=== PATIENT | female | born 1970 | race Caucasian/White ===

== ENCOUNTER → 2016-07-26 | Outpatient (REF) | payer OTHER | LOC: M LAB REF 15:55 | PROVIDERS: ATTEND Physician Assistant Medical | DX: N30.01 Acute cystitis with hematuria (principal) ==

== ENCOUNTER → 2016-08-01 | Outpatient (REF) | payer BC, OTHER | LOC: M LAB REF 12:42 | PROVIDERS: ATTEND Physician Assistant | DX: N30.01 Acute cystitis with hematuria (principal) ==

== ENCOUNTER → 2016-09-28 | Outpatient (CLI) | payer BC ==
[2016-09-28 19:13] LABS: INR 2.41
== END ==
LOC: M ADAMS 15:23
PROVIDERS: ATTEND Physician Assistant Medical
DX: I34.0 Nonrheumatic mitral (valve) insufficiency (principal)

== ENCOUNTER → 2016-10-03 | Outpatient (REF) | payer BC | LOC: M LAB REF 18:49 | PROVIDERS: ATTEND Physician Assistant | DX: N39.0 Urinary tract infection, site not specified (principal) ==

== ENCOUNTER → 2016-11-03 | Outpatient (CLI) | payer BC ==
--- NOTE | 2016-11-04 01:31 | REP ---
Clinical: Pain. Technique: AP, lateral, bilateral oblique coned-down views of the lumbosacral spine. Findings: Chronic-appearing scoliosis and moderate to early advanced degenerative changes include osteophytosis, endplate sclerosis/irregularity and disc space narrowing. No acute fracture / compression injury or subluxation. Impression: Chronic scoliosis and moderate multilevel degenerative disc osteophyte complexes. Signed by Miko Culp MD 11/04/2016 01:23 A
== END ==
LOC: M WUC 14:33
PROVIDERS: ATTEND Nurse Practitioner Family
DX: M41.9 Scoliosis, unspecified (principal); M51.37 Other intervertebral disc degeneration, lumbosacral region

== ENCOUNTER → 2017-02-02 | Outpatient (REF) | payer BC | LOC: M SFHCWAGY 14:11 | PROVIDERS: ATTEND Nurse Practitioner Women's Health | DX: Z12.4 Encounter for screening for malignant neoplasm of cervix (principal) ==

== ENCOUNTER → 2017-02-02 | Outpatient (CLI) | payer BC ==
--- NOTE | 2017-02-02 15:59 | REPMRS ---
Patient History The patient states she had a clinical breast exam in 01/29 Patient is nulliparous. Family history of colorectal cancer in father at age 50. Cyst aspiration of the left breast, 1997. Took hormonal contraceptives for 6 years. Digital Woman Screen Mammo: February 02, 2017 - Exam #: [id number] Bilateral CC and MLO view(s) were taken. Technologist: Rosa Rodriguez, Technologist Prior study comparison: August 07, 2014, digital woman screen mammo performed at [facility]. May 13, 2013, digital woman screen mammo performed at [facility]. FINDINGS: There are scattered fibroglandular densities. There has been no change in the appearance of the mammogram from the prior studies. There is a mild amount of residual fibroglandular tissue which is fairly symmetric. There is no interval development of dominant mass, architectural distortion, or clustered microcalcification suggestive of malignancy. ASSESSMENT: BI-RADS/ACR category 1 mammogram. Negative. Recommendation Routine screening mammogram in 1 year (for women over age 40). This mammogram was interpreted with the aid of an FDA-approved computer-aided dectection system. Electronically Signed By: Shelton Duke MD 02/02/17 [id number]
== END ==
LOC: M WHC 13:36
PROVIDERS: ATTEND Nurse Practitioner Women's Health
DX: Z12.31 Encounter for screening mammogram for malignant neoplasm of breast (principal)

== ENCOUNTER → 2017-06-16 | Outpatient (REF) | payer BC ==
[2017-06-16 12:59] LABS: INR 2.42; PROTHROMBIN TIME 27.3 SECONDS (12.4-14.5)
== END ==
LOC: M LAB REF 12:32
DX: Z95.2 Presence of prosthetic heart valve (principal)
CPT/HCPCS: 85610

== ENCOUNTER → 2017-12-18 | Outpatient (CLI) | payer BC ==
[2017-12-18 20:06] LABS: INR 3.92; PROTHROMBIN TIME 39.3 SECONDS (12.1-14.4)
== END ==
LOC: M ADAMS 11:19
DX: Z51.81 Encounter for therapeutic drug level monitoring (principal); Z79.01 Long term (current) use of anticoagulants; Z95.2 Presence of prosthetic heart valve
CPT/HCPCS: 85610

== ENCOUNTER → 2018-03-29 | Outpatient (CLI) | payer BC | LOC: M CARPUL 09:51 | DX: R06.02 Shortness of breath (principal) | CPT/HCPCS: 94060 ==

== ENCOUNTER → 2018-07-03 | Outpatient (REF) | payer BC ==
[2018-07-03 13:31] LABS: BASO # 0.1 10^3/uL (0.0-0.2); EOS # 0.2 10^3/uL (0.0-0.50); EOS % 3.2 % (0.0-3.0); HEMATOCRIT 38.9 % (36.0-47.0); HEMOGLOBIN 12.9 g/dl (12.0-15.5); LYMPH # 2.3 10^3/uL (1.5-4.5); LYMPH % 33.5 % (24.0-44.0); MEAN CORPUSCULAR HEMOGLOBIN 29.7 pg (27.0-33.0); MEAN CORPUSCULAR HGB CONC 33.2 g/dl (32.0-36.5); MEAN CORPUSCULAR VOLUME 89.4 fl (80.0-96.0); MONO # 0.5 10^3/uL (0.0-0.8); MONO % 7.8 % (0.0-5.0); NEUTROPHILS # 3.7 10^3/uL (1.8-7.7); NEUTROPHILS % 54.2 % (36.0-66.0); PLATELET COUNT, AUTOMATED 256 10^3/uL (150-450); RED BLOOD COUNT 4.35 10^6/uL (4.00-5.40); WHITE BLOOD COUNT 6.8 10^3/uL (4.0-10.0)
[2018-07-03 14:00] LABS: HEMOGLOBIN A1c 6.7 %
[2018-07-03 14:30] LABS: ALBUMIN 3.5 GM/DL (3.2-5.2); ALT/SGPT 16 U/L (12-78); BILIRUBIN,TOTAL 0.6 MG/DL (0.2-1.0); BLOOD UREA NITROGEN 14 MG/DL (7-18); CALCIUM LEVEL 8.7 MG/DL (8.5-10.1); CARBON DIOXIDE LEVEL 24 MEQ/L (21-32); CHLORIDE LEVEL 105 MEQ/L (98-107); CHOLESTEROL LEVEL 184 MG/DL (<200); CHOLESTEROL RISK RATIO 3.407 (<5); CREATININE FOR GFR 0.82 MG/DL (0.55-1.30); GLOMERULAR FILTRATION RATE > 60.0 (>58); GLUCOSE, FASTING 112 MG/DL (70-100); HDL CHOLESTEROL 54 MG/DL (>40); LDL CHOLESTEROL 101 MG/DL (<100); NON-HDL-C 130 MG/DL; POTASSIUM SERUM 4.6 MEQ/L (3.5-5.1); SODIUM LEVEL 139 MEQ/L (136-145); TOTAL 25(OH) VITAMIN D 12.2 NG/ML (30.0-100.0); TOTAL PROTEIN 6.4 GM/DL (6.4-8.2); TRIGLYCERIDES LEVEL 143 MG/DL (<150)
[2018-07-04 10:09] LABS: HIV 1&2 SCREEN CENTAUR NEGATIVE (NEGATIVE)
== END ==
LOC: M LABDRWAD 12:25
PROVIDERS: ATTEND Nurse Practitioner Family
DX: K21.9 Gastro-esophageal reflux disease without esophagitis (principal); E55.9 Vitamin D deficiency, unspecified; Z72.51 High risk heterosexual behavior; R73.01 Impaired fasting glucose; I10 Essential (primary) hypertension

== ENCOUNTER → 2018-07-03 | Outpatient (REF) | payer BC ==
[2018-07-03 13:16] LABS: INR 3.5; PROTHROMBIN TIME 35.9 SECONDS (12.1-14.4)
== END ==
LOC: M LABDRWAD 12:47
PROVIDERS: ATTEND Internal Medicine Cardiovascular Disease
DX: Z95.2 Presence of prosthetic heart valve (principal); Z79.01 Long term (current) use of anticoagulants

== ENCOUNTER → 2019-02-11 | Outpatient (REF) | payer BC ==
[2019-02-11 15:36] LABS: INR 2.2; PROTHROMBIN TIME 24.3 SECONDS (11.8-14.0)
== END ==
LOC: M LAB REF 14:24
PROVIDERS: ATTEND Internal Medicine Cardiovascular Disease
DX: Z95.2 Presence of prosthetic heart valve (principal)

== ENCOUNTER → 2019-03-08 | Outpatient (CLI) | payer BC ==
--- NOTE | 2019-03-12 16:25 | SLEEPCENT ---
DATE OF PROCEDURE: 03/07/2019 ORDERED BY: Edmundo Lopez PA-C Nocturnal polysomnography was performed for evaluation of sleep physiology in this patient with a history of excessive somnolence and nonrestorative sleep who has a history of cardiac dysrhythmia and coronary artery disease, hypertension and diabetes. 7 hours and 24 minutes of data were reviewed. There were 392.5 minutes of sleep identified. Sleep latency was short at 3 minutes. Rapid eye movement (REM) latency was normal at 80 minutes. Sleep architecture was fairly well preserved with some fragmentation. There were four REM cycles noted. Overall sleep efficiency 89.9%. The patient's electrocardiogram showed what appeared to be a sinus rhythm with an average heart rate of 68 beats per minute. Occasional unifocal ectopy were seen. EEG showed normal waveforms for awake and sleep. There were 56 respiratory events identified of 10 seconds in duration or greater for an apnea-hypopnea index of 8.6. The events were primarily obstructive, not exclusive to sleep stage nor body posture. Arousals from respiratory events occurred 5.4 times per hour and oxygen desaturations were seen into the low 80s. Remaining measures of sleep physiology were normal. IMPRESSION: Obstructive sleep apnea syndrome (G47.33). Apnea-hypopnea index 8.6. RECOMMENDATIONS: The patient should be encouraged to return to the sleep disorder center for pressure therapy. In the interim, alcohol and sedative avoidance should be practiced and caution exercised with the operation of motor vehicles.
== END ==
LOC: M SLEEP 19:30
PROVIDERS: ATTEND Physician Assistant
DX: G47.33 Obstructive sleep apnea (adult) (pediatric) (principal)

== ENCOUNTER → 2019-06-03 | Outpatient (REF) | payer BC ==
[2019-06-03 13:38] LABS: INR 4.48; PROTHROMBIN TIME 42.8 SECONDS (11.8-14.0)
[2019-06-03 13:47] LABS: BLOOD UREA NITROGEN 17 MG/DL (7-18); CALCIUM LEVEL 8.6 MG/DL (8.5-10.1); CARBON DIOXIDE LEVEL 25 MEQ/L (21-32); CHLORIDE LEVEL 102 MEQ/L (98-107); CREATININE FOR GFR 0.76 MG/DL (0.55-1.30); GLOMERULAR FILTRATION RATE > 60.0 (>58); GLUCOSE, FASTING 126 MG/DL (70-100); POTASSIUM SERUM 4.6 MEQ/L (3.5-5.1); SODIUM LEVEL 135 MEQ/L (136-145)
== END ==
LOC: M LABDRWAD 12:18
PROVIDERS: ATTEND Internal Medicine Cardiovascular Disease
DX: I10 Essential (primary) hypertension (principal); I34.0 Nonrheumatic mitral (valve) insufficiency; Z79.899 Other long term (current) drug therapy

== ENCOUNTER → 2019-06-10 | Outpatient (REF) | payer BC ==
[2019-06-10 16:53] LABS: INR 2.87
== END ==
LOC: M LABDRWAD 16:16
PROVIDERS: ATTEND Internal Medicine Cardiovascular Disease
DX: Z79.899 Other long term (current) drug therapy (principal); I34.0 Nonrheumatic mitral (valve) insufficiency

== ENCOUNTER → 2019-06-25 | Outpatient (REF) | payer BC | LOC: M LAB REF 16:29 | PROVIDERS: ATTEND Nurse Practitioner Family | DX: R19.7 Diarrhea, unspecified (principal) ==

== ENCOUNTER 2019-06-28 17:34 | Emergency (ER) | payer BC ==
[~2019-06-28] VITALS: Ht 165.1 cm; Wt 111.4 kg
[2019-06-28] MEDS ORDERED: AZIT500T5 (17:50)
[2019-06-28] MEDS ORDERED: CARV25TA (17:50)
[2019-06-28] MEDS ORDERED: VITA50005 (17:50)
[2019-06-28] MEDS ORDERED: ALBU8.5H (17:50)
[2019-06-28] MEDS ORDERED: COUM1TAB17 (17:50)
[2019-06-28] MEDS ORDERED: ASMA16.7 (17:50)
[2019-06-28] MEDS ORDERED: LEVOTAB18 (17:50)
[2019-06-28] MEDS ORDERED: ATOR1TAB19 (17:50)
[2019-06-28] MEDS ORDERED: WARF-23 (17:50)
[2019-06-28] MEDS ORDERED: OMEP-221 (17:50)
[2019-06-28] MEDS ORDERED: METF-791 (17:50)
[2019-06-28] MEDS ORDERED: LISI-542 (17:50)
[2019-06-28 18:30] LABS: HEMATOCRIT 39.9 % (36.0-47.0); HEMOGLOBIN 13.7 g/dl (12.0-15.5); MEAN CORPUSCULAR HEMOGLOBIN 30.3 pg (27.0-33.0); MEAN CORPUSCULAR HGB CONC 34.3 g/dl (32.0-36.5); MEAN CORPUSCULAR VOLUME 88.3 fl (80.0-96.0); PLATELET COUNT, AUTOMATED 273 10^3/uL (150-450); RED BLOOD COUNT 4.52 10^6/uL (4.00-5.40); WHITE BLOOD COUNT 6.3 10^3/uL (4.0-10.0)
[2019-06-28] MEDS ORDERED: ONDANSETRON 4MG/2ML VIAL (J2405) IV ONE (18:45)
[2019-06-28] MEDS ORDERED: NS 1,000 ML IV ONE ×2 (18:45→20:30)
[2019-06-28] MEDS ORDERED: DICYCLOMINE 10 MG CAP PO ONE ×2 (18:45→22:00)
[2019-06-28 18:54] LABS: ATYPICAL LYMPH 2 % (0-5); EOSINOPHILS 1 % (0-3); LYMPHOCYTES 47 % (16-44); MONOCYTES 11 % (0-5); NEUTROPHILS 38 % (28-66)
[2019-06-28 18:55] LABS: ANISOCYTOSIS 1+; HYPOCHROMASIA 1+; PLATELET ESTIMATE NORMAL (NORMAL)
[2019-06-28 19:09] LABS: INR 2.59; PROTHROMBIN TIME 27.6 SECONDS (11.8-14.0)
[2019-06-28 19:10] LABS: PARTIAL THROMBOPLASTIN TIME 40.6 SECONDS (25.0-38.4)
[2019-06-28] MEDS ORDERED: POTASSIUM CHLORIDE 10 MEQ SR TABLET PO ONE (20:30)
[2019-06-28] MEDS ORDERED: METOCLOPRAMIDE INJ 10MG/2ML VIAL (J2765) IV ONE (20:45)
[2019-06-28] MEDS ORDERED: CEFDINIR 300 MG CAP (OMNICEF) PO ONE (21:45)
[2019-06-28] MEDS ORDERED: ONDA4TAB6 PO (21:48)
[2019-06-28] MEDS ORDERED: DICY10CA13 PO (21:48)
[2019-06-28] MEDS ORDERED: CEFD1CAP8 PO (21:48)
[2019-06-28] MEDS ORDERED: ONDANSETRON 4 MG ORAL DISINTEGRATING TAB (Q0162 PER 1MG) PO ONE (22:00)
[2019-06-28 22:09] VITALS: BP 200/104
== END 2019-06-28 22:25 | disposition home or self-care (01) ==
LOC: M ED 17:34
DX: N39.0 Urinary tract infection, site not specified (principal); R10.84 Generalized abdominal pain; R11.2 Nausea with vomiting, unspecified; E11.9 Type 2 diabetes mellitus without complications; R19.7 Diarrhea, unspecified; I10 Essential (primary) hypertension; J45.909 Unspecified asthma, uncomplicated; I47.1 Supraventricular tachycardia; Z95.4 Presence of other heart-valve replacement; Z79.01 Long term (current) use of anticoagulants; Z79.84 Long term (current) use of oral hypoglycemic drugs; Z79.899 Other long term (current) drug therapy; Z91.041 Radiographic dye allergy status; Z91.89 Other specified personal risk factors, not elsewhere classified; Z88.5 Allergy status to narcotic agent
CPT/HCPCS: 80047; 81001; 83690; 84702; 85025; 85610; 85730; 87088; 87186; 96361; 96374; 96375; 99284; J2405; J2765; Q0162

== ENCOUNTER → 2019-07-09 | Outpatient (REF) | payer BC ==
[~2019-07-09] MED LIST: ALBU8.5H; ASMA16.7; ATOR1TAB19; AZIT500T5; CARV25TA; CEFD1CAP8 PO; COUM1TAB17; DICY10CA13 PO; LEVOTAB18; LISI-542; METF-791; OMEP-221; ONDA4TAB6 PO; VITA50005; WARF-23
== END ==
LOC: M LAB REF 12:21
PROVIDERS: ATTEND Nurse Practitioner Family
DX: R30.0 Dysuria (principal)

== ENCOUNTER → 2019-07-15 | Outpatient (REF) | payer BC ==
[2019-07-15 14:30] LABS: INR 3.28; PROTHROMBIN TIME 33.4 SECONDS (11.8-14.0)
== END ==
LOC: M LABDRWAD 13:35
PROVIDERS: ATTEND Internal Medicine Cardiovascular Disease
DX: Z51.81 Encounter for therapeutic drug level monitoring (principal); Z79.899 Other long term (current) drug therapy; I34.0 Nonrheumatic mitral (valve) insufficiency; R30.0 Dysuria

== ENCOUNTER 2019-07-19 18:29 | Emergency (ER) | payer BC ==
[~2019-07-19] VITALS: Ht 165.1 cm; Wt 113.6 kg
[~2019-07-19 18:29] MED LIST changes: -COUM1TAB17; +COUM1TAB17 PO
[2019-07-19] MEDS ORDERED: WARF-22 PO (18:50)
[2019-07-19 19:17] LABS: BASO # 0.1 10^3/uL (0.0-0.2); BASO % 0.8 % (0.0-1.0); EOS # 0.1 10^3/uL (0.0-0.5); EOS % 1.4 % (0.0-3.0); HEMATOCRIT 37.9 % (36.0-47.0); HEMOGLOBIN 12.5 g/dl (12.0-15.5); LYMPH # 2.6 10^3/uL (1.5-5.0); LYMPH % 29.1 % (24.0-44.0); MEAN CORPUSCULAR HEMOGLOBIN 29.6 pg (27.0-33.0); MEAN CORPUSCULAR VOLUME 89.8 fl (80.0-96.0); MONO # 0.7 10^3/uL (0.0-0.8); MONO % 7.9 % (0.0-5.0); NEUTROPHILS # 5.5 10^3/uL (1.5-8.5); NEUTROPHILS % 60.6 % (36.0-66.0); PLATELET COUNT, AUTOMATED 293 10^3/uL (150-450); RED BLOOD COUNT 4.22 10^6/uL (4.00-5.40); WHITE BLOOD COUNT 9.1 10^3/uL (4.0-10.0)
[2019-07-19 19:28] LABS: INR 2.45; PROTHROMBIN TIME 26.4 SECONDS (11.8-14.0)
[2019-07-19] MEDS ORDERED: NS 1,000 ML IV ONE ×2 (19:45→22:15)
[2019-07-19] MEDS ORDERED: ACETAMINOPHEN TAB 650MG DOSE (2X325MG) PO ONE (19:45)
[2019-07-19] MEDS ORDERED: ONDANSETRON 4MG/2ML VIAL (J2405) IV ONE (19:45)
[2019-07-19 19:46] LABS: HCG, SERUM QUALITATIVE NEGATIVE (NEGATIVE)
[2019-07-19 19:49] LABS: INFLUENZA A AMPLIFICATION NEGATIVE (NEGATIVE); INFLUENZA B AMPLIFICATION NEGATIVE (NEGATIVE)
[2019-07-19 20:07] LABS: ALBUMIN 3.4 GM/DL (3.2-5.2); ALT/SGPT 20 U/L (12-78); BILIRUBIN,DIRECT 0.2 MG/DL (0.0-0.2); BILIRUBIN,TOTAL 0.9 MG/DL (0.2-1.0); BLOOD UREA NITROGEN 14 MG/DL (7-18); CARBON DIOXIDE LEVEL 24 MEQ/L (21-32); CHLORIDE LEVEL 103 MEQ/L (98-107); CK-MB VALUE MASS < 1.0 NG/ML (<3.6); CPK CREATINE PHOSPHOKINASE 92 U/L (26-192); CREATININE FOR GFR 0.85 MG/DL (0.55-1.30); GLOMERULAR FILTRATION RATE > 60.0 (>58); GLUCOSE, FASTING 148 MG/DL (70-100); LIPASE 83 U/L (73-393); MB/CK RELATIVE INDEX 1.09 (< OR =4); SODIUM LEVEL 133 MEQ/L (136-145); TOTAL PROTEIN 6.7 GM/DL (6.4-8.2); TROPONIN I < 0.02 NG/ML (< 0.10)
[2019-07-19] MEDS ORDERED: diphenhydrAMINE INJ 50MG/ML VIAL (J1200) IV ONE (22:15)
[2019-07-19] MEDS ORDERED: METOCLOPRAMIDE INJ 10MG/2ML VIAL (J2765) IV ONE (22:15)
[2019-07-19] MEDS ORDERED: KETOROLAC 30 MG/ML VIAL (J1885) IV ONE (22:15)
[2019-07-19 23:55] VITALS: BP 110/59
--- NOTE | 2019-07-20 08:13 | REP ---
Portable sitting AP chest x-ray: Single view. History: Chest pain. Findings: A loop recorder is visible projecting in the left perihilar region. The patient status post aortic valve replacement in the and median sternotomy wires are noted. Monitoring electrodes are seen. There is an orthopedic anchor in the right humeral head. Cardiomegaly is observed. Pulmonary vasculature is cephalized. The lungs are clear. Pleural angles are sharp. No focal infiltrate. Impression: Cardiomegaly with cephalization. Prior aortic valve replacement. Loop recorder. Electronically Signed by Ethan Rivera MD 07/20/2019 08:04 A
--- NOTE | 2019-07-20 18:42 | ECGEPIP ---
[facility] - ED Test Date: 2019-07-19 Pat Name: MARCIANO SHORT Department: Room: - Gender: Female Management Specialist: : [id number] Requested By: JOSÉ MIGUEL GONZALEZ Order Number: [id number] Reading MD: Sunita Nguyen Measurements Intervals [place] Rate: 85 P: 32 WI: 138 QRS: 29 QRSD: 82 T: 11 QT: 353 QTc: 421 Interpretive Statements SINUS RHYTHM WITH FREQUENT VENTRICULAR PREMATURE COMPLEXES NONSPECIFIC T-WAVE ABNORMALITY ABNORMAL RHYTHM ECG NO PRIOR Electronically Signed on 07-20-2019 18:42:07 EST by Sunita Nguyne
--- NOTE | 2019-07-23 11:48 | ED PDOC ---
Post-Departure Follow-Up dr soriano faxed formal report of cxr for fu Ulises Cantrell MD Jul 23, 2019 11:48
== END 2019-07-20 00:48 | disposition home or self-care (01) ==
LOC: EDBD 18:29 → M ED 18:29
DX: J06.9 Acute upper respiratory infection, unspecified (principal); B34.9 Viral infection, unspecified; I49.3 Ventricular premature depolarization; I51.7 Cardiomegaly; Z95.818 Presence of other cardiac implants and grafts; R94.31 Abnormal electrocardiogram [ECG] [EKG]; I10 Essential (primary) hypertension; J45.909 Unspecified asthma, uncomplicated; Z95.2 Presence of prosthetic heart valve; Z79.02 Long term (current) use of antithrombotics/antiplatelets; Z79.84 Long term (current) use of oral hypoglycemic drugs; Z79.899 Other long term (current) drug therapy; Z91.041 Radiographic dye allergy status; Z91.89 Other specified personal risk factors, not elsewhere classified; Z88.5 Allergy status to narcotic agent
CPT/HCPCS: 71045; 80048; 80076; 81001; 82550; 82553; 83605; 83690; 84443; 84484; 84703; 85025; 85610; 85730; 87486; 87502; 87581; 87633; 87798; 93005; 93041; 94760; 96361; 96374; 96375; 99285; J1200; J1885; J2405; J2765

== ENCOUNTER → 2020-01-18 | Outpatient (REF) | payer BC ==
[~2020-01-18] MED LIST changes: -METF-791; +METF-838; +WARF-22 PO
== END ==
LOC: M SFHCADAM 19:11
PROVIDERS: ATTEND Physician Assistant
DX: J02.9 Acute pharyngitis, unspecified (principal)

== ENCOUNTER → 2020-04-16 | Outpatient (CLI) | payer BC ==
--- NOTE | 2020-04-20 19:11 | SLEEPHOME ---
NOCTURNAL POLYSOMNOGRAPHY HOME DATE: 04/16/2020 ORDERED BY: FRANKLIN Quinn Diagnostic home sleep testing was performed due to concern for the obstructive sleep apnea syndrome in this patient with a prior history of same who has comorbidities of hypertension and diabetes. For testing, a nocturnal T3 respiratory monitoring device was used. Continuous record was made of pulse, oxygen saturation, air flow, chest and abdominal strain, and body position. Nine hours and 59 minutes of data were reviewed. There were 7 hours and 38 minutes marked as time in bed. During the interval marked time in bed, there were 88 respiratory events identified of 10 seconds in duration or greater for a respiratory event index of 11.5. The events were obstructive. Baseline pulse rate and saturation measures were lost due to misplacement of the probe. Testing was performed in both the supine and nonsupine positions. IMPRESSION: Abnormal home sleep testing with repetitive respiratory events and a respiratory event index of 11.5 is consistent with the obstructive sleep apnea syndrome. RECOMMENDATION: The patient should be encouraged to undergo a formal sleep evaluation. Dr. Elizabeth
== END ==
LOC: M SLEEP HO 10:18
PROVIDERS: ATTEND Physician Assistant
DX: G47.33 Obstructive sleep apnea (adult) (pediatric) (principal)

== ENCOUNTER → 2020-06-16 | Outpatient (CLI) | payer BC ==
[~2020-06-16] MED LIST changes: -LISI-542; +LISI-898
--- NOTE | 2020-06-16 13:22 | REP ---
INDICATION: SPRAIN OF RIBS COMPARISON: None. TECHNIQUE: Frontal view of the chest with multiple views of the right hemithorax. FINDINGS: Frontal view of the chest demonstrates no acute cardiopulmonary process, contusion, effusion, or pneumothorax. Evidence for prior sternotomy, CABG, aortic valve repair and loop recorder. Multiple views of the right hemithorax demonstrates nondisplaced fracture along the lateral aspect of the right 7th rib. IMPRESSION: Nondisplaced lateral right 7th rib fracture. <Electronically signed by Miko Culp > 06/16/20 [id number]
== END ==
LOC: M ADAMS 08:29
PROVIDERS: ATTEND Nurse Practitioner Family
DX: S22.31XA Fracture of one rib, right side, initial encounter for closed fracture (principal); X58.XXXA Exposure to other specified factors, initial encounter; Y92.9 Unspecified place or not applicable

== ENCOUNTER → 2021-03-18 | Outpatient (CLI) | payer BC ==
[~2021-03-18] MED LIST changes: +ERGO500029; -VITA50005
--- NOTE | 2021-03-18 14:53 | REP ---
INDICATION: MILD INTERMITTENT ASTHMA, UNCOMPLICATED. COMPARISON: 06/16/2020 a frontal view of the chest TECHNIQUE: PA and lateral FINDINGS: The cardiomediastinal silhouette is unchanged. There is mild cardiomegaly status quo. There is been previous median sternotomy and aortic valvular replacement status quo. The implanted loop recorder is unchanged. The lung eagle appear stable. No acute patchy parenchymal opacities or pleural effusions have developed. The pleural angles remain sharp. There is no change in the osseous structures with the exception of a healed right rib fracture.. IMPRESSION: Chronic changes as described above. There is no evidence of acute cardiopulmonary disease. <Electronically signed by Erick Maki > 03/18/21 [id number]
== END ==
LOC: M RAD 13:29
PROVIDERS: ATTEND Internal Medicine Pulmonary Disease
DX: J45.20 Mild intermittent asthma, uncomplicated (principal); I51.7 Cardiomegaly

== ENCOUNTER 2021-04-28 00:18 | Emergency (ER) | payer BC ==
[~2021-04-28] VITALS: Ht 167.6 cm; Wt 110.0 kg
[~2021-04-28 00:18] MED LIST changes: -CEFD1CAP8 PO; +CEFD300C41 PO; -LISI-898; +LISI5TAB11; -OMEP-221; +OMEP40CA5
[2021-04-28] MEDS ORDERED: ASPIRIN 81 MG CHEW TABLET PO ONE (01:15)
[2021-04-28 01:20] LABS: BASO # 0.1 10^3/uL (0.0-0.2); BASO % 0.5 % (0.0-1.0); EOS # 0.2 10^3/uL (0.0-0.5); EOS % 2.3 % (0.0-3.0); HEMATOCRIT 37.2 % (36.0-47.0); HEMOGLOBIN 12.1 g/dl (12.0-15.5); LYMPH # 2.8 10^3/uL (1.5-5.0); LYMPH % 27.7 % (24.0-44.0); MEAN CORPUSCULAR HEMOGLOBIN 27.5 pg (27.0-33.0); MEAN CORPUSCULAR HGB CONC 32.5 g/dl (32.0-36.5); MEAN CORPUSCULAR VOLUME 84.5 fl (80.0-96.0); MONO # 0.8 10^3/uL (0.0-0.8); MONO % 8.1 % (2.0-8.0); NEUTROPHILS # 6.2 10^3/uL (1.5-8.5); PLATELET COUNT, AUTOMATED 317 10^3/uL (150-450); WHITE BLOOD COUNT 10.2 10^3/uL (4.0-10.0)
[2021-04-28 01:46] LABS: ALBUMIN 3.1 GM/DL (3.2-5.2); ALT/SGPT 23 U/L (12-78); BILIRUBIN,DIRECT 0.1 MG/DL (0.0-0.2); BILIRUBIN,TOTAL 0.5 MG/DL (0.2-1.0); BLOOD UREA NITROGEN 12 MG/DL (7-18); CALCIUM LEVEL 9.1 MG/DL (8.5-10.1); CARBON DIOXIDE LEVEL 24 MEQ/L (21-32); CHLORIDE LEVEL 109 MEQ/L (98-107); CREATININE FOR GFR 0.82 MG/DL (0.55-1.30); GLOMERULAR FILTRATION RATE > 60.0 (>58); GLUCOSE, FASTING 189 MG/DL (70-100); LIPASE 114 U/L (73-393); NT-PRO BNP 474 PG/ML (<125); POTASSIUM SERUM 3.7 MEQ/L (3.5-5.1); SODIUM LEVEL 139 MEQ/L (136-145); TOTAL PROTEIN 6.7 GM/DL (6.4-8.2)
[2021-04-28 01:47] LABS: CK-MB VALUE MASS 1.7 NG/ML (<3.6); MB/CK RELATIVE INDEX 1.13 (< OR =4)
[2021-04-28 01:55] LABS: INR 2.07; PROTHROMBIN TIME 23.7 SECONDS (12.7-14.5)
[2021-04-28 01:56] LABS: PARTIAL THROMBOPLASTIN TIME 41.8 SECONDS (25.9-37.0)
[2021-04-28 03:14] LABS: CK-MB VALUE MASS 1.9 NG/ML (<3.6); MB/CK RELATIVE INDEX 1.41 (< OR =4)
[2021-04-28 04:45] VITALS: BP 153/95
== END 2021-04-28 04:56 | disposition home or self-care (01) ==
LOC: M ED 00:18
DX: R07.89 Other chest pain (principal); R10.13 Epigastric pain; I25.10 Atherosclerotic heart disease of native coronary artery without angina pectoris; E11.9 Type 2 diabetes mellitus without complications; I10 Essential (primary) hypertension; E78.5 Hyperlipidemia, unspecified; J45.909 Unspecified asthma, uncomplicated; K80.20 Calculus of gallbladder without cholecystitis without obstruction; Z95.818 Presence of other cardiac implants and grafts; Z95.2 Presence of prosthetic heart valve; Z79.01 Long term (current) use of anticoagulants; Z79.84 Long term (current) use of oral hypoglycemic drugs; Z79.899 Other long term (current) drug therapy; Z91.041 Radiographic dye allergy status; Z91.89 Other specified personal risk factors, not elsewhere classified; Z88.5 Allergy status to narcotic agent

== ENCOUNTER 2021-07-17 09:32 | Emergency (ER) | payer BC ==
[~2021-07-17] VITALS: Ht 165.1 cm; Wt 106.8 kg
[2021-07-17] MEDS ORDERED: FARX1TAB3 (09:46)
[2021-07-17] MEDS ORDERED: ASPI81CH33 PO (09:46)
[2021-07-17] MEDS ORDERED: bcp (09:46)
[2021-07-17] MEDS ORDERED: METO50TA7 (09:46)
[2021-07-17] MEDS ORDERED: DULE200A (09:46)
[2021-07-17] MEDS ORDERED: NS 1,000 ML IV SCH (10:20)
[2021-07-17 10:52] LABS: BASO # 0.1 10^3/uL (0.0-0.2); BASO % 0.7 % (0.0-1.0); EOS # 0.2 10^3/uL (0.0-0.5); EOS % 2.9 % (0.0-3.0); HEMATOCRIT 39.2 % (36.0-47.0); HEMOGLOBIN 12.5 g/dl (12.0-15.5); LYMPH # 2.1 10^3/uL (1.5-5.0); LYMPH % 29.9 % (24.0-44.0); MEAN CORPUSCULAR HEMOGLOBIN 27.2 pg (27.0-33.0); MEAN CORPUSCULAR HGB CONC 31.9 g/dl (32.0-36.5); MEAN CORPUSCULAR VOLUME 85.2 fl (80.0-96.0); MONO # 0.7 10^3/uL (0.0-0.8); MONO % 9.5 % (2.0-8.0); NEUTROPHILS # 3.9 10^3/uL (1.5-8.5); NEUTROPHILS % 56.7 % (36.0-66.0); PLATELET COUNT, AUTOMATED 285 10^3/uL (150-450); WHITE BLOOD COUNT 6.9 10^3/uL (4.0-10.0)
[2021-07-17] MEDS ORDERED: ONDANSETRON 4MG/2ML VIAL IV ONE (11:20)
[2021-07-17 11:28] LABS: BLOOD UREA NITROGEN 11 MG/DL (7-18); CALCIUM LEVEL 8.6 MG/DL (8.5-10.1); CARBON DIOXIDE LEVEL 23 MEQ/L (21-32); CHLORIDE LEVEL 107 MEQ/L (98-107); CREATININE FOR GFR 0.87 MG/DL (0.55-1.30); GLOMERULAR FILTRATION RATE > 60.0 (>58); GLUCOSE, FASTING 154 MG/DL (70-100); POTASSIUM SERUM 4.4 MEQ/L (3.5-5.1); SODIUM LEVEL 141 MEQ/L (136-145)
[2021-07-17 11:29] LABS: ALBUMIN 3.2 GM/DL (3.2-5.2); ALT/SGPT 25 U/L (12-78); BILIRUBIN,DIRECT 0.2 MG/DL (0.0-0.2); BILIRUBIN,TOTAL 0.7 MG/DL (0.2-1.0); FREE T4 1.32 NG/DL (0.76-1.46); LIPASE 84 U/L (73-393); NT-PRO BNP 223 PG/ML (<125); TOTAL PROTEIN 6.7 GM/DL (6.4-8.2)
[2021-07-17 11:31] LABS: CK-MB VALUE MASS < 1.0 NG/ML (<3.6); CPK CREATINE PHOSPHOKINASE 75 U/L (26-192); MB/CK RELATIVE INDEX 1.33 (< OR =4)
[2021-07-17 12:13] LABS: CK-MB VALUE MASS < 1.0 NG/ML (<3.6); CPK CREATINE PHOSPHOKINASE 72 U/L (26-192); MB/CK RELATIVE INDEX 1.39 (< OR =4)
[2021-07-17 13:46] LABS: CK-MB VALUE MASS < 1.0 NG/ML (<3.6); CPK CREATINE PHOSPHOKINASE 71 U/L (26-192); MB/CK RELATIVE INDEX 1.41 (< OR =4)
[2021-07-17] MEDS ORDERED: ONDA4TAB6 PO (14:17)
[2021-07-17 14:31] VITALS: BP 114/68
== END 2021-07-17 14:49 | disposition home or self-care (01) ==
LOC: M ED 09:32
DX: I49.3 Ventricular premature depolarization (principal); R11.0 Nausea; I10 Essential (primary) hypertension; E11.9 Type 2 diabetes mellitus without complications; G47.33 Obstructive sleep apnea (adult) (pediatric)
CPT/HCPCS: 71045; 80048; 80076; 82550; 82553; 83690; 83735; 83880; 84439; 84443; 84484; 85025; 93005; 93041; 94760; 96361; 96374; 99285; J2405

== ENCOUNTER → 2022-04-05 | Outpatient (CLI) | payer BC ==
[~2022-04-05] MED LIST changes: +ASPI81CH33 PO; +FARX1TAB3; +METO50TA7; +MOME13HF7; +bcp
== END ==
LOC: M ADAMS 11:47
PROVIDERS: ATTEND Nurse Practitioner Family
DX: M25.572 Pain in left ankle and joints of left foot (principal); M79.89 Other specified soft tissue disorders

== ENCOUNTER → 2023-01-18 | Outpatient (CLI) | payer BC ==
[~2023-01-18] MED LIST changes: -ASMA16.7; +DICY-61 PO; -DICY10CA13 PO; +MOME13HF4
== END ==
LOC: M RAD 08:47
PROVIDERS: ATTEND Internal Medicine Cardiovascular Disease
DX: I71.20 Thoracic aortic aneurysm, without rupture, unspecified (principal)

== ENCOUNTER 2023-05-02 07:42 | Emergency (ER) | payer BC ==
[~2023-05-02] VITALS: Ht 165.1 cm; Wt 99.8 kg
[~2023-05-02 07:42] MED LIST changes: +CEFD1CAP9 PO; -CEFD300C41 PO; -LISI5TAB11; +LISI5TAB11 PO; -METO50TA7; +METO50TA7 PO; -MOME13HF7; +MOME13HF7 INH; -OMEP40CA5; +OMEP40CA5 PO
[2023-05-02] MEDS ORDERED: dexAMETHasone 20MG/5ML VIAL IV ONE (08:35)
[2023-05-02] MEDS ORDERED: ROBI1LIQ9 PO (08:40)
[2023-05-02] MEDS ORDERED: PRED20TA PO (08:40)
[2023-05-02] MEDS: IPRATROPIUM 0.5MG/ALBUTEROL 2.5MG INH SOL UD 3ML (DUONEB) NEB SCH ×4 (08:47→10:30)
[2023-05-02 09:03] LABS: INR 5.08
[2023-05-02 11:56] VITALS: BP 125/86; TEMP 98.1; O2SAT 98
== END 2023-05-02 11:57 | disposition home or self-care (01) ==
LOC: M ED 07:42
DX: J45.901 Unspecified asthma with (acute) exacerbation (principal); I48.0 Paroxysmal atrial fibrillation; R79.1 Abnormal coagulation profile; Z95.2 Presence of prosthetic heart valve; G47.33 Obstructive sleep apnea (adult) (pediatric); Z86.79 Personal history of other diseases of the circulatory system; Z88.5 Allergy status to narcotic agent; Z91.041 Radiographic dye allergy status; Z91.048 Other nonmedicinal substance allergy status; Z79.52 Long term (current) use of systemic steroids; Z79.82 Long term (current) use of aspirin; Z79.02 Long term (current) use of antithrombotics/antiplatelets; Z79.01 Long term (current) use of anticoagulants; Z79.899 Other long term (current) drug therapy
CPT/HCPCS: 71045; 85610; 87486; 87581; 87633; 87798; 93005; 94640; 96374; 99284; J1100

== ENCOUNTER 2024-08-20 16:14 | Outpatient (CLI) | payer BC ==
[~2024-08-20] VITALS: Ht 165.1 cm; Wt 100.0 kg
[~2024-08-20 16:14] MED LIST changes: +ALBUTEROL SULFATE 2.5MG/0.5ML INH CONCENTRATE NEB SOLN INH PRN; +EPINEPHrine INJ 1 MG/ML 1ML AMP IM PRN; +ONDA-282 PO; -ONDA4TAB6 PO; +PRED20TA PO; +ROBI1LIQ9 PO; +diphenhydrAMINE 50MG/ML VIAL IV PRN; +methylPREDNISolone 125MG 2ML VIAL IV PRN
[2024-08-20] MEDS: IRON SUCROSE 200 MG IVP IV ONE (16:28)
[2024-08-20 17:06] VITALS: BP 142/78; O2SAT 100
[2024-08-20 17:20] VITALS: BP 125/62; O2SAT 100
== END 2024-08-20 17:20 ==
LOC: M INFU 16:14
PROVIDERS: ATTEND Nurse Practitioner Family
DX: D50.9 Iron deficiency anemia, unspecified (principal); Z88.5 Allergy status to narcotic agent; Z91.041 Radiographic dye allergy status; Z91.09 Other allergy status, other than to drugs and biological substances
CPT/HCPCS: 96374; J1756

== ENCOUNTER 2024-08-22 16:38 | Outpatient (CLI) | payer BC ==
[2024-08-22 16:50] VITALS: BP 130/80; O2SAT 99
[2024-08-22] MEDS: IRON SUCROSE 200 MG IVP IV ONE (17:16)
[2024-08-22 17:44] VITALS: BP 132/87; O2SAT 99
== END 2024-08-22 17:45 ==
LOC: M INFU 16:38
PROVIDERS: ATTEND Nurse Practitioner Family
DX: D50.9 Iron deficiency anemia, unspecified (principal); Z88.5 Allergy status to narcotic agent; Z91.048 Other nonmedicinal substance allergy status
CPT/HCPCS: 96374; J1756

== ENCOUNTER 2024-08-27 12:11 | Outpatient (CLI) | payer BC ==
[~2024-08-27] VITALS: Ht 165.1 cm; Wt 104.5 kg
[2024-08-27] MEDS: IRON SUCROSE 200MG IVP IV ONE (12:25)
[2024-08-27 12:45] VITALS: BP 137/79; O2SAT 98
== END 2024-08-27 12:45 | disposition home or self-care (01) ==
LOC: M INFU 12:11
PROVIDERS: ATTEND Nurse Practitioner Family
DX: D50.9 Iron deficiency anemia, unspecified (principal); Z88.5 Allergy status to narcotic agent; Z91.89 Other specified personal risk factors, not elsewhere classified; Z91.041 Radiographic dye allergy status
CPT/HCPCS: 96374; J1756

== ENCOUNTER 2024-09-03 12:30 | Outpatient (CLI) | payer BC ==
[~2024-09-03] VITALS: Ht 165.1 cm; Wt 106.8 kg
[2024-09-03 12:15] VITALS: BP 120/71; O2SAT 99
[2024-09-03] MEDS: IRON SUCROSE 200MG/10ML VIAL IV ONE (12:37)
[2024-09-03 13:05] VITALS: O2SAT 99
[2024-09-03] MEDS ORDERED: IRON SUCROSE 200 MG IVP IV ONE (16:50)
== END 2024-09-03 13:05 ==
LOC: M INFU 12:30
PROVIDERS: ATTEND Nurse Practitioner Family
DX: D50.9 Iron deficiency anemia, unspecified (principal); Z88.5 Allergy status to narcotic agent; Z91.89 Other specified personal risk factors, not elsewhere classified; Z91.041 Radiographic dye allergy status
CPT/HCPCS: 96374; J1756

== ENCOUNTER 2024-09-05 12:00 | Outpatient (CLI) | payer BC ==
[2024-09-05 12:00] VITALS: BP 127/66; O2SAT 98
[2024-09-05] MEDS: IRON SUCROSE 200MG/10ML VIAL IV ONE (12:13)
[2024-09-05 12:45] VITALS: BP 134/85; O2SAT 100
[2024-09-05] MEDS ORDERED: IRON SUCROSE 200 MG IVP IV ONE (16:30)
== END 2024-09-05 12:45 | disposition home or self-care (01) ==
LOC: M INFU 12:00
PROVIDERS: ATTEND Nurse Practitioner Family
DX: D50.9 Iron deficiency anemia, unspecified (principal); Z88.3 Allergy status to other anti-infective agents; Z88.5 Allergy status to narcotic agent; Z91.89 Other specified personal risk factors, not elsewhere classified
CPT/HCPCS: 96374; J1756

== ENCOUNTER → 2024-11-16 | Outpatient (REF) | payer BC ==
[~2024-11-16] MED LIST changes: +ACET-897 PO; -ALBU8.5H; +ALBU8.5H INH; -ALBUTEROL SULFATE 2.5MG/0.5ML INH CONCENTRATE NEB SOLN INH PRN; -ATOR1TAB19; +ATOR1TAB19 PO; +DOCU100C16 PO; +ENOX100I3 SUBQ; -EPINEPHrine INJ 1 MG/ML 1ML AMP IM PRN; -ERGO500029; +ERGO500029 PO; +GLIP5TAB17 PO; +HYDR-3490 PO; +HYDR25OIN TOP; -LEVOTAB18; +LEVOTAB18 PO; +LISI20TA33 PO; +MAGN200T PO; +METF-877 PO; +METO1TAB33 PO; +ONDA-83 PO; +TRAM50TA2 PO; +WARF-21 PO; +WARF-23 PO; -diphenhydrAMINE 50MG/ML VIAL IV PRN; -methylPREDNISolone 125MG 2ML VIAL IV PRN
[2024-11-16 13:54] LABS: INR 1.15
== END ==
LOC: M LAB 13:11
PROVIDERS: ATTEND Internal Medicine Advanced Heart Failure and Transplant Cardiology
DX: Z95.2 Presence of prosthetic heart valve (principal)

== ENCOUNTER 2024-11-17 10:17 | Inpatient (IN) | payer BC ==
[~2024-11-17] VITALS: Ht 165.1 cm; Wt 105.3 kg
[~2024-11-17 10:17] MED LIST changes: -ACET-897 PO; -DOCU100C16 PO; -ENOX100I3 SUBQ; -GLIP5TAB17 PO; -HYDR-3490 PO; -HYDR25OIN TOP; -LISI20TA33 PO; -MAGN200T PO; -METF-877 PO; -METO1TAB33 PO; -ONDA-83 PO; -TRAM50TA2 PO; -WARF-21 PO; -WARF-23 PO
[2024-11-17] MEDS: ONDANSETRON 4MG 2ML VIAL IV ONE (12:26)
[2024-11-17 12:28] LABS: CK-MB VALUE MASS 1.2 NG/ML (<3.6)
[2024-11-17 12:33] LABS: CPK CREATINE PHOSPHOKINASE 58.0 U/L (34-145); MB/CK RELATIVE INDEX 2.06 (< OR =4)
[2024-11-17 12:39] LABS: D-DIMER QUANT 1.06 ug/mL (<0.5); INR 1.36
[2024-11-17 12:40] LABS: BASO # 0.1 10^3/uL (0.0-0.2); BASO % 0.9 % (0.0-1.0); EOS # 0.2 10^3/uL (0.0-0.5); EOS % 2.5 % (0.0-3.0); LYMPH # 2.0 10^3/uL (1.5-5.0); LYMPH % 29.8 % (24.0-44.0); MONO # 0.6 10^3/uL (0.0-0.8); MONO % 8.6 % (2.0-8.0); NEUTROPHILS # 3.9 10^3/uL (1.5-8.5); NEUTROPHILS % 57.8 % (36.0-66.0); PLATELET COUNT, AUTOMATED 268 10^3/uL (150-450)
[2024-11-17 12:51] LABS: CALCIUM LEVEL 9.2 MG/DL (8.5-10.1); CARBON DIOXIDE LEVEL 24.0 MMOL/L (20-31); CHLORIDE LEVEL 102.0 MMOL/L (98-107); CREATININE FOR GFR 0.8 MG/DL (0.55-1.30); GLOMERULAR FILTRATION RATE 88.6 (>51); POTASSIUM SERUM 4.4 MMOL/L (3.5-5.1); SODIUM LEVEL 141.0 MMOL/L (136-145)
[2024-11-17] MEDS ORDERED: ACET-897 PO (14:44)
[2024-11-17] MEDS ORDERED: TRAM50TA2 PO (14:44)
[2024-11-17] MEDS ORDERED: METF-877 PO (14:44)
[2024-11-17] MEDS ORDERED: WARF-21 PO (14:44)
[2024-11-17] MEDS ORDERED: ENOX100I3 SUBQ (14:44)
[2024-11-17] MEDS ORDERED: METO1TAB33 PO (14:44)
[2024-11-17] MEDS ORDERED: MAGN200T PO (14:44)
[2024-11-17] MEDS ORDERED: GLIP5TAB17 PO (14:44)
[2024-11-17] MEDS ORDERED: HYDR-3490 PO (14:44)
[2024-11-17] MEDS ORDERED: LISI20TA33 PO (14:44)
[2024-11-17] MEDS ORDERED: DOCU100C16 PO (14:44)
[2024-11-17] MEDS ORDERED: WARF-23 PO (14:44)
[2024-11-17] MEDS ORDERED: HOME MED LIST COMPLETE! XX SCH (14:45)
[2024-11-17] MEDS ORDERED: DOCUSATE SODIUM 100 MG CAPSULE PO PRN (16:35)
[2024-11-17] MEDS ORDERED: WARFARIN SOD 7.5MG TAB PO SCH (16:35)
[2024-11-17] MEDS ORDERED: HEPARIN SOD 5000 UNITS/ML 1 ML VIAL/SYRINGE IV PRN ×2 (16:35→16:55)
[2024-11-17] MEDS ORDERED: WARFARIN SOD 5MG TAB PO SCH (16:35)
[2024-11-17] MEDS ORDERED: ALBUTEROL 90 MCG/ACT 8 GM HFA INHALER INH PRN (16:35)
[2024-11-17] MEDS ORDERED: traMADol 50 MG TAB PO PRN (16:35)
[2024-11-17] MEDS ORDERED: GLUCAGON INJ 1 MG VIAL SC PRN (17:00)
[2024-11-17] MEDS ORDERED: DEXTROSE 50% 50 ML SYRINGE IV PRN (17:00)
[2024-11-17] MEDS ORDERED: GLUCOSE 4 GM CHEW PO PRN (17:00)
[2024-11-17 17:29] LABS: PLATELET COUNT, AUTOMATED 265 10^3/uL (150-450)
[2024-11-17 18:00] VITALS: BP 138/99; TEMP 97.3; O2SAT 98
[2024-11-17] MEDS: HEPARIN SOD 5000 UNITS/ML 1 ML VIAL/SYRINGE IV ONE (18:43)
[2024-11-17] MEDS: HEPARIN DRIP 25,000 UNITS in IV 1 EA IV SCH (18:44)
[2024-11-17] MEDS: INSULIN LISPRO (NovoLOG) PER UNIT SC SCH (18:53)
[2024-11-17] MEDS: ADVAIR HFA 115/21 MCG INHALER INH SCH (20:00)
[2024-11-17 20:16] VITALS: BP 113/72; TEMP 98.2; O2SAT 96
[2024-11-17] MEDS: WARFARIN SOD 5MG TAB PO ONE (20:30)
[2024-11-17] MEDS: ACETAMINOPHEN 500 MG TAB PO PRN (20:37)
[2024-11-17] MEDS ORDERED: INSULIN LISPRO (NovoLOG) PER UNIT SC SCH (21:00)
[2024-11-17] MEDS: METOPROLOL SUCC. 100 MG *XL* TAB PO SCH (22:05)
[2024-11-17] MEDS: ATORVASTATIN 10 MG TAB PO SCH (22:06)
[2024-11-18] VITALS: BP 119/64; TEMP 98.1; O2SAT 97
[2024-11-18 03:32] VITALS: BP 120/77; TEMP 97; O2SAT 96
[2024-11-18 06:56] LABS: PLATELET COUNT, AUTOMATED 279 10^3/uL (150-450)
[2024-11-18 07:24] LABS: INR 1.68
[2024-11-18 07:37] LABS: CALCIUM LEVEL 9.5 MG/DL (8.5-10.1); CARBON DIOXIDE LEVEL 27 MMOL/L (20-31); CHLORIDE LEVEL 100 MMOL/L (98-107); CREATININE FOR GFR 0.76 MG/DL (0.55-1.30); GLOMERULAR FILTRATION RATE > 90.0 (>51); POTASSIUM SERUM 3.8 MMOL/L (3.5-5.1); SODIUM LEVEL 141 MMOL/L (136-145)
[2024-11-18 08:22] VITALS: BP 121/79; O2SAT 96
[2024-11-18] MEDS: MAGNESIUM OXIDE 400 MG TAB PO SCH (08:25)
[2024-11-18] MEDS: hydroCHLOROthiazide 25 MG TAB PO SCH (08:25)
[2024-11-18] MEDS: OMEPRAZOLE 20MG CAP PO SCH (08:25)
[2024-11-18] MEDS: glipiZIDE 5 MG TAB PO SCH (11:04)
[2024-11-18 12:00] VITALS: BP 108/70; TEMP 97.1; O2SAT 96
[2024-11-18 16:00] VITALS: BP 112/73; TEMP 97; O2SAT 96
[2024-11-18] MEDS: WARFARIN SOD 5MG TAB PO SCH (16:45)
[2024-11-18 20:26] VITALS: BP 121/81; TEMP 96.9; O2SAT 96
[2024-11-19 00:04] VITALS: BP 104/71; TEMP 96.9; O2SAT 95
[2024-11-19 04:14] VITALS: BP 107/75; TEMP 97; O2SAT 98
[2024-11-19] MEDS: ONDANSETRON 4MG TAB PO ONE (06:48)
[2024-11-19 06:50] LABS: PLATELET COUNT, AUTOMATED 275 10^3/uL (150-450)
[2024-11-19] MEDS ORDERED: PROMETHAZINE 25MG/ML 1ML VIAL IM ONE (07:00)
[2024-11-19 07:05] LABS: INR 1.97
[2024-11-19 07:32] LABS: CALCIUM LEVEL 9.1 MG/DL (8.5-10.1); CARBON DIOXIDE LEVEL 26 MMOL/L (20-31); CHLORIDE LEVEL 103 MMOL/L (98-107); CREATININE FOR GFR 0.72 MG/DL (0.55-1.30); GLOMERULAR FILTRATION RATE > 90.0 (>51); POTASSIUM SERUM 3.9 MMOL/L (3.5-5.1); SODIUM LEVEL 140 MMOL/L (136-145)
[2024-11-19 07:42] VITALS: BP 121/75; TEMP 97.5; O2SAT 97
[2024-11-19 09:49] VITALS: BP 121/75
[2024-11-19] MEDS: VITAMIN D 50,000 UNITS CAPSULE (ERGOCALCIFEROL 1.25MG) PO SCH (09:51)
[2024-11-19] MEDS ORDERED: ONDA-83 PO (11:25)
[2024-11-19] MEDS ORDERED: HYDR25OIN TOP (11:25)
[2024-11-19 12:04] VITALS: BP 107/75; TEMP 97.3; O2SAT 97
== END 2024-11-19 15:15 | disposition home or self-care (01) | DRG 861 ==
LOC: M ED 10:17 → M ED INP 17:05 → M PCU 17:42 → OBSVTOIN 11-18 10:42
PROVIDERS: ADMIT Internal Medicine; ATTEND Student in an Organized Health Care Education/Training Program
DX: R79.89 Other specified abnormal findings of blood chemistry (principal); T45.515A Adverse effect of anticoagulants, initial encounter; I35.0 Nonrheumatic aortic (valve) stenosis; E11.9 Type 2 diabetes mellitus without complications; J45.909 Unspecified asthma, uncomplicated; K21.9 Gastro-esophageal reflux disease without esophagitis; I10 Essential (primary) hypertension; I48.21 Permanent atrial fibrillation; L20.89 Other atopic dermatitis; Z79.01 Long term (current) use of anticoagulants; R07.9 Chest pain, unspecified; E55.9 Vitamin D deficiency, unspecified; K59.00 Constipation, unspecified; E78.5 Hyperlipidemia, unspecified; Z88.5 Allergy status to narcotic agent; Z88.8 Allergy status to other drugs, medicaments and biological substances; Z79.899 Other long term (current) drug therapy